=== PATIENT | female | born 2000 | race Hispanic/Latino ===

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

== ENCOUNTER 2021-08-09 19:10 | Emergency (ER) | payer OTHER, SELFPAY ==
--- NOTE | ~2021-08-09 | XR_ITS ---
EXAMINATION: XR chest 2V Exam Date/Time: 08/09/2021 19:50 CDT CLINICAL HISTORY: shortness of breath Comparison: None available RESULT: Lines, tubes, and devices: None. Lungs and pleura: Clear. Cardiomediastinal silhouette: Normal cardiomediastinal silhouette. Other: No acute osseous or upper abdominal finding. IMPRESSION: No acute cardiopulmonary process. Reviewed, dictated and finalized at location K.
[2021-08-09 19:16] VITALS: BP 124/70; PULSE 96; RESP 18; TEMP 37.3; O2SAT 98
--- NOTE | 2021-08-09 19:35 | ED.SOB ---
HPI - SOB/Dyspnea General Chief Complaint: Shortness of Breath/Dyspnea Stated Complaint: cough, chest congestion Time Seen by Provider: 08/09/21 19:27 History of Present Illness HPI Narrative: 20-year-old female presents to the emergency room complaints of sore throat and shortness of breath started yesterday. Patient was seen in urgent care earlier today, states that she had flu, Covid, and strep test all performed. States the results were all negative. Patient states that she was sent home with the amoxicillin and prednisone, and has not yet started either prescription. Patient also states that she has been having difficulty swallowing this may be the cause of her shortness of breath. Related Data Home Medications Medication Instructions Recorded Confirmed No Home Medications 08/09/21 08/09/21 Allergies Allergy/AdvReac Type Severity Reaction Status Date / Time No Known Allergies Allergy Verified 08/09/21 19:58 Review of Systems Review of Systems: CONSTITUTIONAL: Denies fever, chills, or sweats. EYES: Denies visual changes, redness, or discharge. ENT: Reports sore throat CARDIOVASCULAR: Denies chest pain, palpitations, or edema. RESPIRATORY: Reports shortness of breath GASTROINTESTINAL: Denies abdominal pain, nausea, vomiting, or diarrhea. GENITOURINARY: Denies dysuria or hematuria. SKIN: Denies rash or itching. MUSCULOSKELETAL: Denies back pain, joint pain, or myalgia. NEUROLOGIC: Denies headache, numbness, dizziness, or weakness. PSYCHIATRIC: Denies anxiety or depression. PMFSH Past Medical History Medical History Patient denies medical problems Social History Social History Smoking status: Never smoker Gender identity (if verbalized by the patient): Female Exam Narrative: GENERAL: Well-appearing, well-nourished, and in no acute distress. HEAD: Normocephalic, atraumatic. EYES: PERRLA and EOMI. ENT: Nares clear, no rhinorrhea or epistaxis. Mucous membranes moist. Oropharynx tonsillar hypertrophy exudate. Bilateral TMs pearly mendez nonbulging NECK: Supple. Bilateral cervical adenopathy. CHEST: Clear to auscultation. No respiratory distress. No wheezes rales or rhonchi HEART: Regular rate and rhythm. No murmur heard. Normal peripheral pulses. EXTREMITIES: Normal range of motion. No edema. SKIN: Warm, dry, no rash. NEURO: No focal deficits. Alert and oriented x3. PSYCH: Normal mood and affect. Course Vital Signs Vital signs: Vital Signs Temperature 37.3 C 08/09/21 19:16 Pulse Rate 96 08/09/21 19:16 Respiratory Rate 18 08/09/21 19:16 Blood Pressure 124/70 08/09/21 19:16 Pulse Oximetry 98 08/09/21 19:16 Temperature 37.3 C 08/09/21 19:16 Pulse Rate 96 08/09/21 19:16 Respiratory Rate 18 08/09/21 19:16 Blood Pressure 124/70 08/09/21 19:16 Pulse Oximetry 98 08/09/21 19:16 MDM - SOB/Dyspnea MDM Narrative Medical decision making narrative: 9-year-old female presented emergency room complaints of shortness of breath and sore throat. Patient was seen at urgent care earlier today diagnosed with tonsillitis. Patient had not started on her steroids or amoxicillin that were prescribed to her. Dauphin test here was negative. Chest x-ray showed no acute abnormalities. Patient's difficulty swallowing shortness of breath are likely due to her inflamed tonsils. Lab Data Labs: Lab Results 08/09/21 Range/Units 20:04 Monoscreen Negative (Negative) Discharge Plan Discharge Clinical Impression: Pharyngitis Qualifiers: Pharyngitis/tonsillitis etiology: unspecified etiology Qualified Code(s): J02.9 - Acute pharyngitis, unspecified Patient Disposition: Home, Self-Care Condition: Stable Instructions: Antibiotic Form Additional Instructions: Continue taking previously prescribed medications as ordered. May take Tylenol and ibuprofen a
[2021-08-09 20:46] LABS: Monoscreen Negative (Negative); Negative Monotest Control Negative (Negative); Positive Monotest Control Positive (Positive)
[2021-08-09 21:09] VITALS: BP 123/78; PULSE 96; RESP 18; TEMP 37.9; O2SAT 95
== END 2021-08-09 21:09 | disposition home or self-care (01) ==
PROVIDERS: Emergency Provider Nurse Practitioner Family
DX: J02.9 Acute pharyngitis, unspecified (principal)
CPT/HCPCS: 36415; 71046; 86308; 96372; 99283; J1100